=== PATIENT | male | born 1970 | race Caucasian/White ===

== ENCOUNTER 2018-02-15 09:01 | Emergency (ER) | payer BC ==
[2018-02-15 09:29] VITALS: BP 145/90
--- NOTE | 2018-02-15 10:13 | UC ---
Eye Complaint HPI - HPI Summary HPI Summary: Patient presents to urgent care reporting swelling and discomfort of his left upper eyelid. Patient states yesterday the eyelid felt a little bit sore. Today it was red and swollen upper left lid. Patient denies eye pain. No vision changes. No nausea vomiting. No fever. No drainage. No photophobia. Patient does not wear glasses or corrective lenses. Patient denies a foreign body sensation. Patient states his tetanus is up-to-date. No history of similar. No history of trauma. no analgesia taken Patient's medications reviewed this visit. - History of Current Complaint Chief Complaint: UCEye Stated Complaint: LEFT EYE CONCERN Time Seen by Provider: 02/15/18 09:36 Hx Obtained From: Patient Onset/Duration: Gradual Onset Timing: Constant Severity Initially: Mild Severity Currently: Mild Pain Intensity: 1 - Allergies/Home Medications Allergies/Adverse Reactions: Allergies Allergy/AdvReac Type Severity Reaction Status Date / Time pollen extracts Allergy Eyes Verified 02/15/18 09:22 Itchy/Swollen/Red/Watery PMH/Surg Hx/FS Hx/Imm Hx Previously Healthy: Yes - Surgical History Surgical History: Yes Surgery Procedure, Year, and Place: ear tubes as a child - Family History Known Family History: Positive: Other - non contributory - Social History Occupation: Employed Full-time Lives: With Family Alcohol Use: Weekly Substance Use Type: None Smoking Status (MU): Never Smoked Tobacco Review of Systems Constitutional: Negative Eyes: Other - left upper lid All Other Systems Reviewed And Are Negative: Yes Physical Exam - Summary Physical Exam Summary: Vital Signs Reviewed: Yes A+Ox3, no distress, Eyes: Conjunctiva Clear, JERRY, EOM intact and full no injection pt with edema upper left lid, no stye noted on inversion of lid. no crepitus, no extension to nose or forehead ENT: Hearing grossly normal TMx 2 clear mmmoist no exudate neck: supple Respiratory: Positive: No respiratory distress, No accessory muscle use Cardiovascular: skin color reflect adequate perfusion Musculoskeletal Exam: FAY x 4 without difficulty Neurological: Positive: Alert, ambulatory without difficulty Psychological: Positive: Normal Response To Family Skin: Positive: no rash, no ecchymosis Triage Information Reviewed: Yes Vital Signs: Initial Vital Signs Temp 98.1 F 02/15/18 09:20 Pulse 59 02/15/18 09:20 Resp 18 02/15/18 09:20 BP 145/90 02/15/18 09:20 Pulse Ox 97 02/15/18 09:20 Eye Complaint Course/Dx - Course Course Of Treatment: Pt presents with left upper lid redness and erythema today. Normal eye exam. erythema, swollen upper lid. No photophobia. No pain with EOM. no stye. Rx bactrim. heat back. motrin/apap. return precaution. BP mildly elevate - recommend pcp f/u - Differential Dx/Diagnosis Provider Diagnoses: left periorbital cellulitis Discharge - Sign-Out/Discharge Documenting (check all that apply): Patient Departure All imaging exams completed and their final reports reviewed: No Studies - Discharge Plan Condition: Stable Disposition: HOME Prescriptions: Sulfamethox/Trimethoprim DS* [Bactrim DS 800/160 TAB*] 1 tab PO BID #20 tab Patient Education Materials: Periorbital Cellulitis in Adults (ED) Forms: *Work Release Referrals: Dm Massey MD [Primary Care Provider] - Additional Instructions: - apply warm, wet soaks to your eye 3 times a day - Take antibiotics as prescribed until gone - Okay to take ibuprofen (Advil, Motrin) and Tylenol every 3 hours for pain or fever. Take with food - If you have pain with movement of your eye, increased swelling, fevers, pain or other concerns it is recommended you proceed to the emergency department for further evaluation and treatment - Billing Disposition and Condition Condition: STABLE Disposition: Home
== END 2018-02-15 10:15 | disposition home or self-care (01) ==
LOC: UCCORT 09:01
DX: L03.213 Periorbital cellulitis (principal)
CPT/HCPCS: 99212; G0463

== ENCOUNTER 2019-08-07 11:22 | Emergency (ER) | payer BC ==
[2019-08-07 12:37] VITALS: BP 136/92
--- NOTE | 2019-08-07 13:19 | UC ---
Eye Complaint HPI - HPI Summary HPI Summary: 48yo male presenting with "irritated lump" of left upper eyelid since this morning. States it might have been starting last night. Denies drainage. Denies vision changes. States this happened once before a few years ago and went away on its own. - History of Current Complaint Chief Complaint: UCSkin Stated Complaint: LT EYE DISCOMFORT Hx Obtained From: Patient Pain Intensity: 1 Pain Scale Used: 0-10 Numeric - Allergies/Home Medications Allergies/Adverse Reactions: Allergies Allergy/AdvReac Type Severity Reaction Status Date / Time pollen extracts Allergy Eyes Verified 08/07/19 12:34 Itchy/Swollen/Red/Watery Home Medications: Home Medications NK [No Home Medications Reported] 08/07/19 [History Confirmed 08/07/19] PMH/Surg Hx/FS Hx/Imm Hx Previously Healthy: Yes - Surgical History Surgical History: Yes Surgery Procedure, Year, and Place: ear tubes as a child - Family History Known Family History: Positive: Other - non contributory - Social History Alcohol Use: Rare Substance Use Type: None Smoking Status (MU): Never Smoked Tobacco Review of Systems All Other Systems Reviewed And Are Negative: Yes Constitutional: Positive: Negative Skin: Positive: Negative Eyes: Positive: Other - "painful lump left upper eyelid". Negative: Blurred Vision, Drainage, Eye Redness, Photophobia Respiratory: Positive: Negative Cardiovascular: Positive: Negative Gastrointestinal: Positive: Negative Physical Exam Triage Information Reviewed: Yes Appearance: Well-Appearing, No Pain Distress, Well-Nourished Vital Signs: Initial Vital Signs Temp 97.7 F 08/07/19 12:34 Pulse 74 08/07/19 12:34 Resp 16 08/07/19 12:34 BP 136/92 08/07/19 12:34 Pulse Ox 97 08/07/19 12:34 Vital Signs Reviewed: Yes Eyes: Positive: Conjunctiva Clear, Other: - mildly tender stye noted of left lateral upper eyelid, no drainage ENT: Positive: Hearing grossly normal Neck: Positive: Supple Respiratory: Positive: No respiratory distress, No accessory muscle use Cardiovascular Exam: Other - skin reflects adequate perfusion Neurological: Positive: Alert Psychological: Positive: Age Appropriate Behavior Eye Complaint Course/Dx - Course Course Of Treatment: Discussed stye with patient and instructed to apply warm compresses for treatment. Instructed to return or follow up with pcp if symptoms do not improve within 1-2 weeks. Patient voiced understanding and agreed with treatment plan. - Differential Dx/Diagnosis Provider Diagnosis: Hordeolum externum left upper eyelid Discharge ED - Sign-Out/Discharge Documenting (check all that apply): Patient Departure All imaging exams completed and their final reports reviewed: No Studies - Discharge Plan Condition: Stable Disposition: HOME Patient Education Materials: Rhoda (ED) Referrals: Dm Massey MD [Primary Care Provider] - If Needed Additional Instructions: Apply warm compresses to the left eye 2-3 times daily. Should improve within 1-2 weeks. Return or follow up with pcp if it persists. - Billing Disposition and Condition Condition: STABLE Disposition: Home
== END 2019-08-07 13:01 | disposition home or self-care (01) ==
LOC: UCCORT 11:22
DX: H00.014 Hordeolum externum left upper eyelid (principal)
CPT/HCPCS: 99211; G0463